=== PATIENT | female | born 1945 | race Hispanic/Latino ===

== ENCOUNTER 2016-10-05 09:27 | Outpatient (CLI) | payer OTHER ==
--- NOTE | 2016-10-05 12:30 | Cat Scan Report ---
CT CHEST WITH CONTRAST INDICATION: Lung nodule. COMPARISON: 10/08/2015 and 09/06/2013 chest CTs. FINDINGS: Chest CT performed following intravenous administration of 100 cc of Omnipaque 300. Motion artifact partly degrades exam. Stable heart size and grossly unremarkable great vessels. No effusions or size significant adenopathy. Patent central airway. Few small bilateral axillary lymph nodes again noted, largest approximately 1.1 cm on the right. Stable thyroid with asymmetric right thyroid lobe enlargement/posterior extension and approximately 2.1 x 1 cm ovoid, heterogeneous lesion in the right lobe with few intrinsic calcifications, axial image 13, series 2. Mild diffuse emphysematous changes again noted, most in the upper lobes. Stable 1.2 x 0.7 cm left upper lobe density/scar, axial image 30, series 3. Mild surrounding scarring in the left upper lobe as also some posteriorly in the superior segment of the left lower lobe as on axial image 50 also again noted. No new suspicious lung nodules. Few atherosclerotic aortic and coronary calcifications. Slight nonspecific distal esophageal prominence/thickening. No significant abnormality in the included upper abdomen with an approximately 5 mm hypodensity/cyst in the liver medially again partially imaged on axial image 130, series 2. Mild multilevel spinal degenerative spurring. CONCLUSION: No acute chest CT abnormality with stable left lung scarring/upper lobe density in this patient with underlying emphysematous changes and few other incidental findings, as above. Thank you for the opportunity to participate in this patient's care.
== END 2016-10-05 09:28 | disposition home or self-care (01) ==
LOC: CT 09:27
DX: R91.1 Solitary pulmonary nodule (principal)
CPT/HCPCS: 36415; 71260; 82565; 84520; Q9967